=== PATIENT | female | born 1955 | race Caucasian/White ===

== ENCOUNTER → 2019-09-22 | Outpatient (CLI) | payer MEDICARE, OTHER ==
[2019-09-22 09:15] LABS: BLOOD UREA NITROGEN 16 MG/DL (7-18); CALCIUM LEVEL 9.3 MG/DL (8.8-10.2); CARBON DIOXIDE LEVEL 31 MEQ/L (21-32); CHLORIDE LEVEL 104 MEQ/L (98-107); CREATININE FOR GFR 0.73 MG/DL (0.55-1.30); GLOMERULAR FILTRATION RATE > 60.0 (>45); GLUCOSE, FASTING 81 MG/DL (70-100); SODIUM LEVEL 141 MEQ/L (136-145)
[2019-09-22 09:16] LABS: ALBUMIN 3.9 GM/DL (3.2-5.2); ALT/SGPT 26 U/L (12-78); BILIRUBIN,TOTAL 0.5 MG/DL (0.2-1.0); CHOLESTEROL LEVEL 248 MG/DL (<200); CHOLESTEROL RISK RATIO 3.397 (<5); HDL CHOLESTEROL 73 MG/DL (>40); LDL CHOLESTEROL 156 MG/DL (<100); NON-HDL-C 175 MG/DL; TOTAL PROTEIN 7.3 GM/DL (6.4-8.2); TRIGLYCERIDES LEVEL 97 MG/DL (<150)
== END ==
LOC: M LAB 07:44
PROVIDERS: ATTEND Physician Assistant
DX: I10 Essential (primary) hypertension (principal)

== ENCOUNTER → 2020-04-24 | Outpatient (CLI) | payer MEDICARE, OTHER ==
[~2020-04-24] MED LIST: DICY10CA13 PO; DOXY100C PO; LOSA50TA88
[2020-04-24 17:14] LABS: BASO # 0.1 10^3/uL (0.0-0.2); HEMATOCRIT 39.4 % (36.0-47.0); HEMOGLOBIN 12.8 g/dl (12.0-15.5); LYMPH # 1.6 10^3/uL (1.5-5.0); LYMPH % 25.6 % (24.0-44.0); MEAN CORPUSCULAR HEMOGLOBIN 28.8 pg (27.0-33.0); MEAN CORPUSCULAR HGB CONC 32.5 g/dl (32.0-36.5); MEAN CORPUSCULAR VOLUME 88.7 fl (80.0-96.0); MONO # 0.8 10^3/uL (0.0-0.8); MONO % 13.4 % (0.0-5.0); NEUTROPHILS # 3.6 10^3/uL (1.5-8.5); NEUTROPHILS % 59.8 % (36.0-66.0); PLATELET COUNT, AUTOMATED 304 10^3/uL (150-450); RED BLOOD COUNT 4.44 10^6/uL (4.00-5.40); WHITE BLOOD COUNT 6.1 10^3/uL (4.0-10.0)
[2020-04-24 17:24] LABS: ALBUMIN 3.7 GM/DL (3.2-5.2); ALT/SGPT 28 U/L (12-78); BILIRUBIN,DIRECT < 0.1 MG/DL (0.0-0.2); BILIRUBIN,TOTAL 0.3 MG/DL (0.2-1.0); BLOOD UREA NITROGEN 14 MG/DL (7-18); CALCIUM LEVEL 9.2 MG/DL (8.8-10.2); CARBON DIOXIDE LEVEL 30 MEQ/L (21-32); CHLORIDE LEVEL 106 MEQ/L (98-107); CREATININE FOR GFR 0.78 MG/DL (0.55-1.30); GLOMERULAR FILTRATION RATE > 60.0 (>45); GLUCOSE, FASTING 146 MG/DL (70-100); LIPASE 160 U/L (73-393); POTASSIUM SERUM 3.6 MEQ/L (3.5-5.1); SODIUM LEVEL 141 MEQ/L (136-145); TOTAL PROTEIN 7.3 GM/DL (6.4-8.2)
== END ==
LOC: M PLALAB 14:39
PROVIDERS: ATTEND Nurse Practitioner Family
DX: R19.7 Diarrhea, unspecified (principal)

== ENCOUNTER → 2020-04-25 | Outpatient (REF) | payer MEDICARE, OTHER | LOC: M LAB REF 11:31 | PROVIDERS: ATTEND Nurse Practitioner Family | DX: R19.7 Diarrhea, unspecified (principal) ==

== ENCOUNTER → 2020-08-09 | Outpatient (CLI) | payer MEDICARE, OTHER | LOC: M LABSMTC 12:20 | PROVIDERS: ATTEND Anesthesiology | DX: Z01.812 Encounter for preprocedural laboratory examination (principal); Z20.828 Contact with and (suspected) exposure to other viral communicable diseases | CPT/HCPCS: C9803; U0003 ==

== ENCOUNTER 2020-08-14 10:28 | Day surgery (SDC) | payer MEDICARE, OTHER ==
[~2020-08-14] VITALS: Ht 162.6 cm; Wt 56.7 kg
[~2020-08-14 10:28] MED LIST changes: +LIDOCAINE 2% 100MG/5ML SDV (FOR ANES.) As Ordered ONE; +NS 1,000 ML IV ONE; +propofoL 200 MG/20 ML VIAL As Ordered ONE
--- NOTE | 2020-08-14 12:26 | ROOR ---
Patient Name: Arleen Pickering Procedure Date: 08/14/2020 11:42 AM Date of : 1955 Age: 64 Room: [facility] Gender: Female Note Status: Finalized Procedure: Colonoscopy Indications: Rectal bleeding, Change in bowel habits Providers: Rm Douglas MD Referring MD: Celena Dominguez MD Requesting Provider: Medicines: Monitored Anesthesia Care Complications: No immediate complications. Procedure: Pre-Anesthesia Assessment: - Prior to the procedure, a History and Physical was performed, and patient medications and allergies were reviewed. The patient is competent. The risks and benefits of the procedure and the sedation options and risks were discussed with the patient. All questions were answered and informed consent was obtained. Patient identification and proposed procedure were verified by the physician, the nurse and the apartment leasing consultant in the endoscopy suite. Mental Status Examination: alert and oriented. Airway Examination: normal oropharyngeal airway and neck mobility. Respiratory Examination: clear to auscultation. CV Examination: normal. Prophylactic Antibiotics: The patient does not require prophylactic antibiotics. Prior Anticoagulants: The patient has taken no previous anticoagulant or antiplatelet agents. ASA Grade Assessment: II - A patient with mild systemic disease. After reviewing the risks and benefits, the patient was deemed in satisfactory condition to undergo the procedure. The anesthesia plan was to use monitored anesthesia care (MAC). Immediately prior to administration of medications, the patient was re-assessed for adequacy to receive sedatives. The heart rate, respiratory rate, oxygen saturations, blood pressure, adequacy of pulmonary ventilation, and response to care were monitored throughout the procedure. The physical status of the patient was re-assessed after the procedure. The Colonoscope was introduced through the anus and advanced to the terminal ileum, with identification of the appendiceal orifice and IC valve. The colonoscopy was somewhat difficult due to mucosal inflammation [Solution]. The quality of the bowel preparation was adequate to identify polyps. Findings: Hemorrhoids were found on perianal exam. A diffuse area of moderately congested, friable (with contact bleeding), granular, hemorrhagic and inflamed mucosa was found in the entire colon. Biopsies were taken with a cold forceps for histology. Estimated blood loss was minimal. The terminal ileum appeared normal. This was biopsied with a cold forceps for histology. This was biopsied with a cold forceps for histology. External and internal hemorrhoids were found during retroflexion. The hemorrhoids were medium-sized. Impression: - Hemorrhoids found on perianal exam. - Congested, friable (with contact bleeding), granular, hemorrhagic and inflamed mucosa in the entire examined colon. Biopsied. - The examined portion of the ileum was normal. Biopsied. - External and internal hemorrhoids. - The examination was suspicious for extensive pancolonic ulcerative colitis ulcerative colitis. Biopsied. Recommendation: - Telephone my office for pathology results in 1 week. Attending Participation: I personally performed the entire procedure. Rm Douglas MD Rm Douglas MD 08/14/2020 12:26:21 PM Electronically signed by Rm Douglas MD Number of Addenda: 0 Note Initiated On: 08/14/2020 11:42 AM Estimated Blood Loss: Estimated blood loss was minimal.
[2020-08-14 12:45] VITALS: BP 166/66
== END 2020-08-14 13:10 | disposition home or self-care (01) ==
LOC: M OPP 10:28
PROVIDERS: ATTEND Surgery
DX: K63.89 Other specified diseases of intestine (principal); K64.8 Other hemorrhoids; K52.9 Noninfective gastroenteritis and colitis, unspecified; R19.4 Change in bowel habit; K62.5 Hemorrhage of anus and rectum; Z79.899 Other long term (current) drug therapy; Z88.0 Allergy status to penicillin

== ENCOUNTER → 2020-10-16 | Outpatient (CLI) | payer MEDICARE, OTHER ==
[~2020-10-16] MED LIST changes: +LEVO750T14 PO; -LIDOCAINE 2% 100MG/5ML SDV (FOR ANES.) As Ordered ONE; +MESA800T8 PO; -NS 1,000 ML IV ONE; -propofoL 200 MG/20 ML VIAL As Ordered ONE
[2020-10-16 10:24] LABS: HEMATOCRIT 38.4 % (36.0-47.0); HEMOGLOBIN 11.8 g/dl (12.0-15.5); MEAN CORPUSCULAR HEMOGLOBIN 26.8 pg (27.0-33.0); MEAN CORPUSCULAR HGB CONC 30.7 g/dl (32.0-36.5); MEAN CORPUSCULAR VOLUME 87.3 fl (80.0-96.0); PLATELET COUNT, AUTOMATED 596 10^3/uL (150-450); WHITE BLOOD COUNT 14.4 10^3/uL (4.0-10.0)
[2020-10-16 10:51] LABS: ATYPICAL LYMPH 1 % (0-5); BASOPHILS 2 % (0-1); EOSINOPHILS 7 % (0-3); LYMPHOCYTES 20 % (16-44); MONOCYTES 14 % (0-5); NEUTROPHILS 34 % (28-66)
[2020-10-16 10:52] LABS: PLATELET ESTIMATE INCREASED (NORMAL)
[2020-10-16 11:04] LABS: ALBUMIN 2.9 GM/DL (3.2-5.2); ALT/SGPT 12 U/L (12-78); BILIRUBIN,TOTAL 0.4 MG/DL (0.2-1.0); BLOOD UREA NITROGEN 8 MG/DL (7-18); CALCIUM LEVEL 9.2 MG/DL (8.8-10.2); CARBON DIOXIDE LEVEL 30 MEQ/L (21-32); CHLORIDE LEVEL 102 MEQ/L (98-107); CHOLESTEROL LEVEL 153 MG/DL (<200); CHOLESTEROL RISK RATIO 3.255 (<5); CREATININE FOR GFR 0.66 MG/DL (0.55-1.30); FREE T4 1.38 NG/DL (0.76-1.46); GLOMERULAR FILTRATION RATE > 60.0 (>45); GLUCOSE, FASTING 103 MG/DL (70-100); HDL CHOLESTEROL 47 MG/DL (>40); LDL CHOLESTEROL 83 MG/DL (<100); NON-HDL-C 106 MG/DL; POTASSIUM SERUM 3.9 MEQ/L (3.5-5.1); SODIUM LEVEL 136 MEQ/L (136-145); TOTAL PROTEIN 7.1 GM/DL (6.4-8.2); TRIGLYCERIDES LEVEL 116 MG/DL (<150)
== END ==
LOC: M PLALAB 08:07
PROVIDERS: ATTEND Nurse Practitioner Family
DX: K51.90 Ulcerative colitis, unspecified, without complications (principal); Z79.899 Other long term (current) drug therapy

== ENCOUNTER 2020-10-17 10:26 | Emergency (ER) | payer MEDICARE, OTHER ==
[~2020-10-17] VITALS: Ht 162.6 cm; Wt 55.8 kg
[2020-10-17 10:26] VITALS: BP 122/60
[~2020-10-17 10:26] MED LIST changes: -LEVO750T14 PO; -MESA800T8 PO
[2020-10-17] MEDS ORDERED: MESA800T8 PO (10:42)
--- NOTE | 2020-10-17 11:31 | REP ---
INDICATION: CHEST PAIN. COMPARISON: Comparison chest x-ray April 28, 2010. TECHNIQUE: Portable upright AP chest radiograph. FINDINGS: The lungs are well inflated and free of infiltrate. Pleural angles are sharp. Heart size is normal. Pulmonary vasculature is not increased. There is some fissural thickening along the minor fissure. No pleural effusion is seen. Minimal platelike atelectasis is present in the right base. Lung schneider are otherwise clear. IMPRESSION: Fissural thickening along the minor fissure and minimal platelike atelectasis right base. Otherwise no active disease.. <Electronically signed by Ravi Alvarez > 10/17/20 [id number]
[2020-10-17 12:03] LABS: HEMATOCRIT 38.4 % (36.0-47.0); HEMOGLOBIN 12.2 g/dl (12.0-15.5); MEAN CORPUSCULAR HEMOGLOBIN 27.6 pg (27.0-33.0); MEAN CORPUSCULAR HGB CONC 31.8 g/dl (32.0-36.5); MEAN CORPUSCULAR VOLUME 86.9 fl (80.0-96.0); PLATELET COUNT, AUTOMATED 522 10^3/uL (150-450); RED BLOOD COUNT 4.42 10^6/uL (4.00-5.40); WHITE BLOOD COUNT 13.1 10^3/uL (4.0-10.0)
[2020-10-17 12:24] LABS: INR 1.07; PARTIAL THROMBOPLASTIN TIME 33.8 SECONDS (24.2-38.5); PROTHROMBIN TIME 14.1 SECONDS (12.5-14.3)
[2020-10-17 12:43] LABS: ALBUMIN 2.8 GM/DL (3.2-5.2); ALT/SGPT 12 U/L (12-78); BILIRUBIN,DIRECT < 0.1 MG/DL (0.0-0.2); BILIRUBIN,TOTAL 0.3 MG/DL (0.2-1.0); BLOOD UREA NITROGEN 11 MG/DL (7-18); CALCIUM LEVEL 9.3 MG/DL (8.8-10.2); CARBON DIOXIDE LEVEL 28 MEQ/L (21-32); CHLORIDE LEVEL 102 MEQ/L (98-107); CK-MB VALUE MASS < 1.0 NG/ML (<3.6); CPK CREATINE PHOSPHOKINASE 33 U/L (26-192); CREATININE FOR GFR 0.74 MG/DL (0.55-1.30); FREE T4 1.48 NG/DL (0.76-1.46); GLOMERULAR FILTRATION RATE > 60.0 (>45); GLUCOSE, FASTING 114 MG/DL (70-100); LIPASE 161 U/L (73-393); MB/CK RELATIVE INDEX 3.03 (< OR =4); NT-PRO BNP 75 PG/ML (<125); POTASSIUM SERUM 4.4 MEQ/L (3.5-5.1); SODIUM LEVEL 137 MEQ/L (136-145); TOTAL PROTEIN 6.9 GM/DL (6.4-8.2); TROPONIN I < 0.02 NG/ML (< 0.10)
[2020-10-17 12:48] LABS: BASOPHILS 2 % (0-1); EOSINOPHILS 5 % (0-3); LYMPHOCYTES 27 % (16-44); MONOCYTES 10 % (0-5); NEUTROPHILS 44 % (28-66); PLATELET ESTIMATE INCREASED (NORMAL)
[2020-10-17] MEDS ORDERED: ISOVUE-370 76% 100ML VIAL As Ordered ONE (12:58)
[2020-10-17 13:08] LABS: MAGNESIUM LEVEL 1.9 MG/DL (1.8-2.4)
--- NOTE | 2020-10-17 13:28 | REP ---
INDICATION: vert. point tenderness; ?injury. COMPARISON: Comparison chest x-rays from earlier this date. Comparison CT study August 11, 2016.. TECHNIQUE: Helical scanning is acquired and 4 mm axial images re-formatted. Coronal and sagittal MPR images are generated. FINDINGS: Digital clinic administrator radiograph demonstrates multiple metallic embolic coils an in the left upper quadrant consistent with embolic coil therapy for previously diagnosed splenic artery aneurysm. These metallic coils cast some spray artifact. Thoracic vertebral body heights are preserved. Alignment is normal. No fracture is seen. Pedicles and posterior elements are intact. No bony destructive lesion is appreciated. No paravertebral soft tissue mass is seen. Visualized lung schneider are unremarkable. IMPRESSION: No fracture, collapse, or other acute bony abnormality. Status post coil therapy for splenic artery aneurysm. <Electronically signed by Ravi Alvarez > 10/17/20 [id number]
--- NOTE | 2020-10-17 13:29 | REP ---
INDICATION: SOB; painful inspiration COMPARISON: None. TECHNIQUE: Axial contrast enhanced images from the thoracic inlet to the upper abdomen using pulmonary embolus technique with multiplanar re-formations. 75 ml Isovue 370 intravenous contrast material administered without complication. This CT examination was performed using the following dose reduction techniques: Automated exposure control, adjustment of mA and/or kv according to the patient's size, and use of iterative reconstruction technique. FINDINGS: Satisfactory enhancement of the pulmonary vasculature is achieved and no filling defects are identified to suggest pulmonary embolus. Further evaluation of the mediastinum demonstrates mild atherosclerotic changes to the thoracic aorta without aneurysm or dissection. No cardiomegaly or pericardial effusion. Lung schneider demonstrate 3.6 cm platelike area of consolidation in the apex of the right middle lobe at the confluence of the major and minor fissures with mild right hilar adenopathy concerning for active process including pneumonia and malignancy. Mild bibasilar atelectasis (right greater than left). No pleural effusion. No pneumothorax. Tracheobronchial tree is patent. Skeletal structures are intact and without acute osseous abnormality. Limited upper abdomen demonstrates scattered hepatic hypodensities likely representing benign hepatic cysts. IMPRESSION: 1. No evidence for pulmonary embolus. 2. Area of consolidation at the apex of the right middle lobe with mild right hilar adenopathy suspicious for acute process including infiltrate and malignancy. Short-term follow-up examination is recommended. 3. Mild bibasilar atelectasis. <Electronically signed by Blas Riley > 10/17/20 1513
[2020-10-17] MEDS ORDERED: LEVO750T14 PO (14:08)
--- NOTE | 2020-10-18 13:18 | ED PDOC ---
Post-Departure Follow-Up cta chest faxed to dr kumari for fu Bhakti Motley MD Oct 18, 2020 13:18
--- NOTE | 2020-10-18 21:25 | ECGEPIP ---
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
== END 2020-10-17 15:36 | disposition home or self-care (01) ==
LOC: M ED 10:26
DX: J18.1 Lobar pneumonia, unspecified organism (principal); I10 Essential (primary) hypertension; Z79.899 Other long term (current) drug therapy; Z88.0 Allergy status to penicillin
CPT/HCPCS: 71045; 71275; 72128; 80048; 80076; 82550; 82553; 83690; 83735; 83880; 84439; 84443; 84484; 85025; 85610; 85730; 93005; 93041; 94760; 99284; Q9967; U0003

== ENCOUNTER → 2020-10-22 | Outpatient (REF) | payer MEDICARE, OTHER ==
[~2020-10-22] MED LIST changes: +LEVO750T14 PO; +MESA800T8 PO
== END ==
LOC: M LAB REF 12:29
PROVIDERS: ATTEND Nurse Practitioner Family
DX: R19.7 Diarrhea, unspecified (principal)

== ENCOUNTER → 2020-12-10 | Outpatient (CLI) | payer MEDICARE, OTHER ==
[~2020-12-10] MED LIST changes: +ISOVUE-370 76% 100ML VIAL As Ordered ONE
--- NOTE | 2020-12-10 11:12 | REP ---
INDICATION: F/U CTA 10/31 ? MALIGNANCY RML COMPARISON: None TECHNIQUE: Axial contrast enhanced images from the thoracic inlet to the upper abdomen with coronal and sagittal reformations using 75 ml Isovue 370 intravenous contrast material. This CT examination was performed using the following dose reduction techniques: Automated exposure control, adjustment of mA and/or kv according to the patient's size, and use of iterative reconstruction technique. FINDINGS: The previously identified area of opacity along the apical portion of the right middle lobe has essentially completely resolved and likely represented transient pneumonia. The so seated adenopathy on prior examination has also resolved. The lung schneider are well aerated and clear. No acute consolidation, effusion or pneumothorax. Tracheobronchial tree is patent. No suspicious nodule or mass lesion. Further evaluation of the mediastinum demonstrates stable atherosclerotic changes to the thoracic aorta without aneurysm or dissection. No cardiomegaly or pericardial effusion. Pulmonary vasculature appears normal. Surrounding musculoskeletal structures are intact. Limited upper abdomen demonstrates stable hepatic cysts. IMPRESSION: 1. Previously noted suspicious consolidation in the right middle lobe has resolved. 2. No acute mediastinal or pleuroparenchymal process appreciated. <Electronically signed by Blas Riley > 12/10/20 [id number]
== END ==
LOC: M RAD 10:01
PROVIDERS: ATTEND Nurse Practitioner Family
DX: D38.1 Neoplasm of uncertain behavior of trachea, bronchus and lung (principal)
CPT/HCPCS: 71260; Q9967

== ENCOUNTER → 2020-12-17 | Outpatient (CLI) | payer MEDICARE, OTHER ==
[~2020-12-17] MED LIST changes: -ISOVUE-370 76% 100ML VIAL As Ordered ONE
[2020-12-17 16:22] LABS: HEMATOCRIT 34.6 % (36.0-47.0); HEMOGLOBIN 10.7 g/dl (12.0-15.5); MEAN CORPUSCULAR HEMOGLOBIN 27.3 pg (27.0-33.0); MEAN CORPUSCULAR HGB CONC 30.9 g/dl (32.0-36.5); MEAN CORPUSCULAR VOLUME 88.3 fl (80.0-96.0); PLATELET COUNT, AUTOMATED 446 10^3/uL (150-450); RED BLOOD COUNT 3.92 10^6/uL (4.00-5.40); WHITE BLOOD COUNT 13.1 10^3/uL (4.0-10.0)
[2020-12-17 16:49] LABS: ALBUMIN 2.7 GM/DL (3.2-5.2); ALT/SGPT 105 U/L (12-78); BILIRUBIN,TOTAL 0.3 MG/DL (0.2-1.0); BLOOD UREA NITROGEN 13 MG/DL (7-18); C REACTIVE PROTEIN QUANTITATIV 2.56 MG/DL (0.00-0.30); CALCIUM LEVEL 8.8 MG/DL (8.8-10.2); CARBON DIOXIDE LEVEL 26 MEQ/L (21-32); CHLORIDE LEVEL 106 MEQ/L (98-107); CREATININE FOR GFR 0.57 MG/DL (0.55-1.30); GLOMERULAR FILTRATION RATE > 60.0 (>45); GLUCOSE, FASTING 95 MG/DL (70-100); SODIUM LEVEL 138 MEQ/L (136-145); TOTAL 25(OH) VITAMIN D 32.4 NG/ML (30.0-100.0); TOTAL PROTEIN 6.3 GM/DL (6.4-8.2); VITAMIN B12 LEVEL 1167 PG/ML (247-911)
[2020-12-17 16:58] LABS: HEPATITIS B SURFACE ANTIGEN NEGATIVE (NEGATIVE)
== END ==
LOC: M PLALAB 14:34
PROVIDERS: ATTEND Internal Medicine Gastroenterology
DX: K51.90 Ulcerative colitis, unspecified, without complications (principal); R19.7 Diarrhea, unspecified; R63.4 Abnormal weight loss; E56.9 Vitamin deficiency, unspecified

== ENCOUNTER → 2021-01-03 | Outpatient (CLI) | payer MEDICARE, OTHER ==
--- NOTE | 2021-01-03 12:26 | REP ---
INDICATION: ELEVATED LFTS. COMPARISON: None. TECHNIQUE: Real-time sonographic evaluation of right upper quadrant performed. FINDINGS: At least 1 subcentimeter gallstone is seen in the gallbladder and there is mild sludge. There is no gallbladder wall thickening or pericholecystic fluid.. There is no intrahepatic or extrahepatic biliary dilatation, common bile duct measures 6 mm in maximum diameter. Liver demonstrates somewhat increased heterogeneous echotexture suggesting some degree of fibrofatty infiltration. Multiple cysts are seen, the largest in the left lobe measures 1.1 cm enlarged in the right lobe 3.5 cm. Pancreas is not optimally visualized due to overlying bowel gas, no gross mass is seen. The right kidney demonstrates no hydronephrosis, with a normal size of 11.3 cm in length. No free fluid is seen. IMPRESSION: Subcentimeter gallstone and mild sludge in the gallbladder. No biliary dilatation or free fluid. Findings in the liver suggesting some degree of fibrofatty infiltration. Multiple liver cysts present. <Electronically signed by Glenn Nguyen > 01/03/21 [id number]
== END ==
LOC: M RAD 08:51
PROVIDERS: ATTEND Internal Medicine Gastroenterology
DX: K80.20 Calculus of gallbladder without cholecystitis without obstruction (principal); K76.89 Other specified diseases of liver; R94.5 Abnormal results of liver function studies; K51.90 Ulcerative colitis, unspecified, without complications

== ENCOUNTER → 2021-01-17 | Outpatient (CLI) | payer MEDICARE, OTHER ==
[2021-01-17 10:30] LABS: HEMATOCRIT 33.5 % (36.0-47.0); HEMOGLOBIN 10.3 g/dl (12.0-15.5); MEAN CORPUSCULAR HEMOGLOBIN 27.5 pg (27.0-33.0); MEAN CORPUSCULAR HGB CONC 30.7 g/dl (32.0-36.5); MEAN CORPUSCULAR VOLUME 89.3 fl (80.0-96.0); PLATELET COUNT, AUTOMATED 400 10^3/uL (150-450); RED BLOOD COUNT 3.75 10^6/uL (4.00-5.40); WHITE BLOOD COUNT 7.6 10^3/uL (4.0-10.0)
[2021-01-17 10:54] LABS: ERYTHROCYTE SEDIMENTATION RATE 41 mm/hr (0-30)
[2021-01-17 11:10] LABS: ALBUMIN 3.3 GM/DL (3.2-5.2); ALT/SGPT 37 U/L (12-78); BILIRUBIN,DIRECT 0.1 MG/DL (0.0-0.2); BILIRUBIN,TOTAL 0.3 MG/DL (0.2-1.0); C REACTIVE PROTEIN QUANTITATIV < 0.30 MG/DL (0.00-0.30); FERRITIN 7 NG/ML (8-252); IRON (FE) 31 UG/DL (50-170); PERCENT SATURATION 7.8 % (13.2-45.0); TOTAL IRON BINDING CAPACITY 400 UG/DL (250-450); TOTAL PROTEIN 6.6 GM/DL (6.4-8.2)
[2021-01-17 11:12] LABS: HEPATITIS B SURFACE ANTIBODY NEGATIVE (POSITIVE)
[2021-01-17 11:22] LABS: HEPATITIS B SURFACE ANTIGEN NEGATIVE (NEGATIVE)
[2021-01-17 11:51] LABS: HEPATITIS C VIRUS ABY INDEX < 0.0 INDEX (<0.8)
[2021-01-17 11:52] LABS: HEPATITIS A ANTIBODY IGM NEGATIVE (NEGATIVE)
[2021-01-20 10:57] LABS: ALPHA-1-GLOBULIN % 4.5 % (2.9-4.9); ALPHA-2-GLOBULINS 0.77 GM/DL (0.42-0.99); ALPHA-2-GLOBULINS % 11.7 % (7.1-11.8); BETA-1-GLOBULINS 0.42 GM/DL (0.28-0.60); BETA-1-GLOBULINS % 6.4 % (4.7-7.2); BETA-2-GLOBULINS 0.34 GM/DL (0.19-0.55); BETA-2-GLOBULINS % 5.2 % (3.2-6.5); GAMMA GLOBULIN % 19.2 % (11.1-18.8); GAMMA GLOBULINS 1.27 GM/DL (0.65-1.58)
== END ==
LOC: M PLALAB 08:04
PROVIDERS: ATTEND Internal Medicine Gastroenterology
DX: R94.5 Abnormal results of liver function studies (principal); K51.90 Ulcerative colitis, unspecified, without complications

== ENCOUNTER → 2021-03-17 | Outpatient (CLI) | payer MEDICARE, OTHER ==
[2021-03-17 15:29] LABS: HEMATOCRIT 36.2 % (36.0-47.0); HEMOGLOBIN 11.3 g/dl (12.0-15.5); MEAN CORPUSCULAR HEMOGLOBIN 28.1 pg (27.0-33.0); MEAN CORPUSCULAR HGB CONC 31.2 g/dl (32.0-36.5); PLATELET COUNT, AUTOMATED 364 10^3/uL (150-450); RED BLOOD COUNT 4.02 10^6/uL (4.00-5.40); WHITE BLOOD COUNT 5.6 10^3/uL (4.0-10.0)
[2021-03-17 15:52] LABS: ERYTHROCYTE SEDIMENTATION RATE 24 mm/hr (0-30)
[2021-03-17 15:55] LABS: ALBUMIN 3.2 GM/DL (3.2-5.2); ALT/SGPT 25 U/L (12-78); BILIRUBIN,TOTAL 0.4 MG/DL (0.2-1.0); BLOOD UREA NITROGEN 13 MG/DL (7-18); CALCIUM LEVEL 9.5 MG/DL (8.8-10.2); CARBON DIOXIDE LEVEL 29 MEQ/L (21-32); CHLORIDE LEVEL 107 MEQ/L (98-107); CREATININE FOR GFR 0.59 MG/DL (0.55-1.30); FERRITIN 28 NG/ML (8-252); GLOMERULAR FILTRATION RATE > 60.0 (>45); GLUCOSE, FASTING 75 MG/DL (70-100); IRON (FE) 110 UG/DL (50-170); PERCENT SATURATION 37.5 % (13.2-45.0); POTASSIUM SERUM 4.3 MEQ/L (3.5-5.1); SODIUM LEVEL 143 MEQ/L (136-145); TOTAL IRON BINDING CAPACITY 293 UG/DL (250-450); TOTAL PROTEIN 6.5 GM/DL (6.4-8.2)
== END ==
LOC: M PLALAB 13:14
PROVIDERS: ATTEND Internal Medicine Gastroenterology
DX: K51.90 Ulcerative colitis, unspecified, without complications (principal); E56.9 Vitamin deficiency, unspecified